=== PATIENT | male | born 1995 | race African-American/Black ===

== ENCOUNTER 2022-05-24 21:27 | Emergency (ER) | payer OTHER ==
[2022-05-24] MEDS ORDERED: Acetaminophen 500 MG TAB ONE ×2 (22:32→23:00)
[2022-05-24] MEDS ORDERED: Ondansetron ODT 4 MG TAB ONE (23:00)
[2022-05-24 23:56] LABS: SARS-CoV-2 NAA Rapid Test Not Detected (NotDetected)
== END 2022-05-25 00:39 | disposition home or self-care (01) ==
LOC: ERS 21:27
DX: J11.1 Influenza due to unidentified influenza virus with other respiratory manifestations (principal); Z20.822 Contact with and (suspected) exposure to COVID-19
CPT/HCPCS: 99283; Q0162